=== PATIENT | female | born 1995 | race Caucasian/White ===

== ENCOUNTER 2017-02-23 21:53 | Emergency (ER) | payer OTHER ==
[~2017-02-23] VITALS: Ht 165.1 cm; Wt 79.6 kg
[~2017-02-23 21:53] MED LIST: FLAGYL500 MG PO; METHERGINE0.2 MG PO; NORCO 5/3251 TABLET PO; VIBRAMYCIN100 MG PO
[2017-02-24 00:21] VITALS: BP 122/70
== END 2017-02-24 00:22 | disposition home or self-care (01) ==
LOC: EME 21:53
PROVIDERS: Physician Assistant
DX: O98.511 Other viral diseases complicating pregnancy, first trimester (principal); B34.9 Viral infection, unspecified; Z3A.08 8 weeks gestation of pregnancy
CPT/HCPCS: 87502; 87651 90; 99281; 99284

== ENCOUNTER → 2017-07-19 | Outpatient (CLI) | payer OTHER ==
[~2017-07-19] VITALS: Ht 163.8 cm; Wt 80.9 kg
[~2017-07-19] MED LIST changes: +PRENATAL TABLE1 EAC3 PO; +TYLENOL325 M2 PO
[2017-07-19 07:54] VITALS: BP 122/67
== END | disposition home or self-care (01) ==
LOC: IVINF 07:49
DX: Z34.83 Encounter for supervision of other normal pregnancy, third trimester (principal); Z3A.28 28 weeks gestation of pregnancy; Z67.41 Type O blood, Rh negative
CPT/HCPCS: 96372; J2790

== ENCOUNTER 2017-09-30 06:12 | Inpatient (IN) | payer OTHER ==
[~2017-09-30] VITALS: Ht 165.1 cm; Wt 87.7 kg
[2017-09-30 07:20] VITALS: BP 118/71
[2017-09-30 08:41] LABS: AMPHETAMINE NEGATIVE (500 ng/mL); BARBITURATES NEGATIVE (200 ng/mL); BENZODIAZEPINES NEGATIVE (150 ng/mL); BUPRENORPHINE NEGATIVE (10 ng/mL); COCAINE NEGATIVE (150 ng/mL); METHADONE NEGATIVE (200 ng/mL); METHAMPHETAMINE NEGATIVE (500 ng/mL); OPIATES (MORPHINE) NEGATIVE (100 ng/mL); OXYCODONE NEGATIVE (100 ng/mL); PHENCYCLIDINE NEGATIVE (25 ng/mL); PROPOXYPHENE NEGATIVE (300 ng/mL); THC CANNABINOIDS NEGATIVE (50 ng/mL); TRICYCLIC ANTIDEPRESSANTS NEGATIVE (300 ng/mL)
[2017-09-30] MEDS ORDERED: ENDOCET 5-3251 EACH PO (10:56)
[2017-09-30] MEDS ORDERED: IBUPROFEN800 MG PO (10:56)
[2017-09-30 13:12] VITALS: BP 127/73
[2017-09-30 19:28] VITALS: BP 125/73
[2017-09-30 21:26] VITALS: BP 120/74
[2017-10-01 05:53] LABS: BASOPHIL (%) 0.5 % (0-1); BASOPHIL COUNT 0.1 K/uL (0-0.1); EOSINOPHIL (%) 0.6 % (0-5); EOSINOPHIL COUNT 0.1 K/uL (0-0.3); HEMATOCRIT 34.4 % (36.0-46.0); HEMOGLOBIN 11.1 G/DL (11.9-15.5); IMMATURE GRANULOCYTE (%) 0.3 % (0.0-0.7); LYMPHOCYTE (%) 20.3 % (15-42); LYMPHOCYTE COUNT 2.3 K/uL (1.0-2.8); MCH 27.8 PG (29.0-34.0); MCHC 32.3 G/DL (30.0-36.0); MCV 86.2 FL (83-99); MONOCYTE (%) 6.5 % (3-12); MONOCYTE COUNT 0.8 K/uL (0-0.8); NEUTROPHIL (%) 71.8 % (45-76); NEUTROPHIL COUNT 8.3 K/uL (1.8-6.4); PLATELET COUNT 195 K/uL (156-360); RBC DIS.WIDTH-CV 12.8 % (11.8-14.6); RBC DIS.WIDTH-SD 39.7 % (39-53); RED BLOOD COUNT 3.99 M/uL (3.80-5.20); WHITE BLOOD COUNT 11.5 K/uL (4.1-10.2)
[2017-10-01 07:28] VITALS: BP 124/67
[2017-10-01 11:49] VITALS: BP 126/71
[2017-10-01 15:10] VITALS: BP 126/72
[2017-10-01 19:09] VITALS: BP 129/73
[2017-10-01 23:00] VITALS: BP 135/75
[2017-10-02 03:11] VITALS: BP 126/78
[2017-10-02 07:15] VITALS: BP 145/79
== END 2017-10-02 12:23 | disposition home or self-care (01) | DRG 766 ==
LOC: 2WEST 06:12 → 2SOUTH 14:41 → 2WEST 10-02 12:23
PROVIDERS: Obstetrics & Gynecology
PROC: 10D00Z1 Extraction of Products of Conception, Low, Open Approach (ICD-10-PCS; principal; 2017-09-30)
DX: O34.211 Maternal care for low transverse scar from previous cesarean delivery (principal); O99.344 Other mental disorders complicating childbirth; F43.10 Post-traumatic stress disorder, unspecified; F32.9 Major depressive disorder, single episode, unspecified; F41.9 Anxiety disorder, unspecified; Z3A.39 39 weeks gestation of pregnancy; Z37.0 Single live birth; Z82.0 Family history of epilepsy and other diseases of the nervous system
CPT/HCPCS: 36415; 83030; 85025; 86850; 86900; 86901; J0690; J1170; J2274; J2790; J3010; J7120; S0020